=== PATIENT | male | born 1975 | race Native Hawaiian/Other Pacific Islander ===

== ENCOUNTER 2017-01-06 00:18 | Emergency (ER) | payer MEDICARE, MEDICAID ==
[2017-01-06 00:20] VITALS: BMI 29.2
[2017-01-06 00:41] VITALS: O2SAT 97
[2017-01-06] MEDS ORDERED: Sodium Chloride 0.9% 1,000 ML IV ONE (00:52)
--- NOTE | 2017-01-06 01:02 | C.PDOC ---
History Of Present Illness 41 year old male with a history of psoriasis, presents to the ER after being referred by his PMD with c/o left flank pain that began yesterday. Pt also notes having left lower quadrant pain and nausea. Denies difficulty with urination, fever, chills, vomiting, diarrhea, or any other complaints. Time Seen by Provider: 01/06/17 00:48 Chief Complaint (Nursing): Abdominal Pain History Per: Patient History/Exam Limitations: no limitations Onset/Duration Of Symptoms: Days Current Symptoms Are (Timing): Still Present Severity: Mild Location Of Pain/Discomfort: LLQ, Other (Left flank pain) Associated Symptoms: Nausea. denies: Fever, Chills, Vomiting, Diarrhea, Urinary Symptoms (difficulty urinating) Past Medical History Reviewed: Historical Data, Nursing Documentation, Vital Signs Vital Signs: Last Vital Signs Temp 97.2 F L 01/06/17 00:37 Pulse 96 H 01/06/17 00:37 Resp 18 01/06/17 00:37 BP 138/70 01/06/17 00:37 Pulse Ox 97 01/06/17 03:16 - Medical History PMH: Anxiety, Arthritis (psoriatic), Bipolar Disorder, Depression, Migraine, Personality Disorder, Post Traumatic Stress Disorder, Seizures Other PMH: Psoriasis - [facility] Procedures PSYCHIAT DRUG THERAP NEC (05/17/13) Family History: States: Unknown Family Hx - Social History Hx Tobacco Use: No Hx Alcohol Use: No Hx Substance Use: No - Immunization History Hx Tetanus Toxoid Vaccination: No Hx Influenza Vaccination: No Hx Pneumococcal Vaccination: No Review Of Systems Except As Marked, All Systems Reviewed And Found Negative. Constitutional: Negative for: Fever, Chills Gastrointestinal: Positive for: Nausea, Abdominal Pain (Left flank pain, left lower quadrant pain). Negative for: Vomiting, Diarrhea Genitourinary: Negative for: Dysuria Physical Exam - Physical Exam Appears: Non-toxic, No Acute Distress Skin: Warm, Dry Head: Atraumatic, Normacephalic Eye(s): bilateral: Normal Inspection Oral Mucosa: Moist Neck: Normal ROM, Supple Chest: Symmetrical Cardiovascular: Rhythm Regular, No Murmur Respiratory: Normal Breath Sounds, No Accessory Muscle Use, No Rales, No Rhonchi , No Wheezing Gastrointestinal/Abdominal: Soft, No Distention, No Guarding, No Rebound Back: CVA Tenderness (+Left CVA tenderness) Male Genital: No Testicular Swelling (No swelling on testicular exam) Neurological/Psych: Oriented x3, Normal Speech, Normal Cognition Gait: Steady ED Course And Treatment - Laboratory Results Result Diagrams: 01/06/17 01:26 01/06/17 01:26 O2 Sat by Pulse Oximetry: 97 (Room air) Pulse Ox Interpretation: Normal Medical Decision Making Medical Decision Making: Plan: -Ct ABD & Pelvis w/o contrast -Labs -Urinalysis -IV fluids -Toradol -reassess 315: pt reassesed. pain resolved. abd soft. mild leukoctyosis. no uti. 4 mm stone, stable for outpt managemnet. return precautions advised Disposition - Disposition Referrals: Yony Chua MD [Primary Care Provider] - Law Vega MD [Staff Provider] - Loida Vega MD [Staff Provider] - Disposition: HOME/ ROUTINE Disposition Time: 03:11 Condition: STABLE Additional Instructions: please follow up with your doctor. return to er with worsening symptoms or concerns. Prescriptions: Tamsulosin [Flomax] 0.4 mg PO DAILY #10 cap Ibuprofen [Motrin] 400 mg PO Q6 PRN #20 tab PRN Reason: Pain, Mild (1-3) Instructions: Kidney Stones (ED) - Clinical Impression Clinical Impression: Calculus of kidney - Scribe Statement The provider has reviewed the documentation as recorded by the Scribe Yung george All medical record entries made by the Scribe were at my direction and personally dictated by me. I have reviewed the chart and agree that the record accurately reflects my personal performance of the history, physical exam, medical decision making, and the department course for this patient. I have also personally directed, reviewed, and agree with the discharge instructions and disposition.
[2017-01-06] MEDS ORDERED: Sodium Chloride 0.9% 1,000 ML ONE (01:16)
[2017-01-06 01:30] LABS: BASO % 0.3 % (0.0-2.0); EOS % 0.2 % (0.0-4.0); HEMATOCRIT 49.4 % (35.0-51.0); LYMPH # 1.1 K/uL (1.0-4.3); LYMPH % 8.3 % (20.0-40.0); MEAN CELL VOLUME 87.8 fL (80.0-94.0); MEAN CORPUSCULAR HEMOGLOBIN 28.9 pg (27.0-31.0); MEAN CORPUSCULAR HGB CONC 32.9 g/dL (33.0-37.0); MEAN PLATELET VOLUME 9.5 fL (7.2-11.7); MONO # 0.4 K/uL (0.0-0.8); MONO % 3.3 % (0.0-10.0); PLATELET COUNT 189 K/uL (130-400); RED CELL DISTRIBUTION WIDTH 13.7 % (11.5-14.5); WHITE BLOOD COUNT 13.4 K/uL (4.8-10.8)
[2017-01-06 01:41] LABS: CHLORIDE 102 mmol/L (98-107); POTASSIUM 4.4 mmol/L (3.6-5.2); SODIUM 141 mmol/L (132-148)
[2017-01-06 01:43] LABS: BILIRUBIN,TOTAL 0.7 mg/dL (0.2-1.3); GFR AFRICAN-AMERICAN > 60
[2017-01-06 01:44] LABS: ALB/GLOB RATIO 1.2 (1.0-2.1); ALKALINE PHOSPHATASE 73 U/L (38-126); ALT/SGPT 51 U/L (21-72); AST/SGOT 35 U/L (17-59); BLOOD UREA NITROGEN 14 mg/dL (9-20); CALCIUM 8.3 mg/dl (8.6-10.4); CARBON DIOXIDE 22 mmol/L (22-30); GLUCOSE,RANDOM 108 mg/dL (75-110); TOTAL PROTEIN 8.3 g/dL (6.3-8.3)
[2017-01-06 02:14] LABS: RBC URINE 107 /hpf (0-3); URINE BILIRUBIN NEGATIVE (NEGATIVE); URINE BLOOD 3+ (NEGATIVE); URINE COLOR Yellow (YELLOW); URINE GLUCOSE (UA) NORMAL (Normal); URINE KETONE NEGATIVE (NEGATIVE); URINE LEUKOCYTE ESTERASE NEG Leu/uL (Negative); URINE PROTEIN NEGATIVE (NEGATIVE); URINE UROBILINOGEN NORMAL mg/dL (0.2-1.0); WBC URINE 2 /hpf (0-5)
[2017-01-06 02:33] LABS: EOSINOPHIL 1 % (0-4); NEUTROPHIL 88 % (50-75); TOTAL CELLS COUNTED 100
[2017-01-06 04:06] VITALS: BP 120/71; PULSE 77; RESP 20; TEMP 98.1
--- NOTE | 2017-01-06 09:29 | CT ---
PROCEDURE: CT Abdomen and Pelvis without intravenous contrast HISTORY: left flank pain COMPARISON: Comparison is made to the previous study dated 10/28/2011 TECHNIQUE: Axial and reformatted coronal and sagittal CT images of the abdomen and pelvis were obtained without IV or oral contrast administration.. Contrast Dose: 0 Radiation dose: Total exam DLP = 804.75 mGy-cm. FINDINGS: LOWER THORAX: Unremarkable. LIVER: Again seen is patchy low-attenuation liver suggestive of moderate steatosis. No evidence of acute pathology or mass lesion in the liver. GALLBLADDER AND BILE DUCTS: Unremarkable. PANCREAS: Unremarkable. No gross lesion or ductal dilatation. SPLEEN: Unremarkable. ADRENALS: Unremarkable. No mass. KIDNEYS AND URETERS: Mild left hydronephrosis and hydroureter up to 4 millimeter calculus at the mid left ureter. No evidence of right renal calculi or hydronephrosis. Mild left perinephric stranding seen. VASCULATURE: Unremarkable. No aortic aneurysm. BOWEL: Unremarkable. No obstruction. No gross mural thickening. APPENDIX: Unremarkable. Normal appendix. PERITONEUM: Unremarkable. No free fluid. No free air. LYMPH NODES: Unremarkable. No enlarged lymph nodes. BLADDER: Unremarkable. REPRODUCTIVE: Unremarkable. BONES: No acute fracture. OTHER FINDINGS: None. IMPRESSION: Mild left hydronephrosis and hydroureter up to 4 millimeter calculus at the mid left ureter. Mild left perinephric stranding. Otherwise no evidence of acute pathology in the abdomen and pelvis. Moderate hepatic steatosis. Preliminary report was submitted by [facility].
== END 2017-01-06 03:53 | disposition home or self-care (01) ==
LOC: C.ER 00:18 → SUPCPDRO 00:18 → C.ER 03:53
DX: N20.0 Calculus of kidney (principal)
CPT/HCPCS: 74176; 80053; 81001; 83690; 85025; 85610; 85730; 96361; 96374; 99284; J1885; J7040

== ENCOUNTER 2017-09-28 18:47 | Inpatient (IN) | payer MEDICARE, MEDICAID ==
[2017-09-28 18:47] VITALS: BMI 29.2
[2017-09-28 19:34] LABS: BASO % 0.4 % (0.0-2.0); EOS # 0.3 K/uL (0.0-0.7); EOS % 2.7 % (0.0-4.0); HEMATOCRIT 47.2 % (35.0-51.0); LYMPH # 3.4 K/uL (1.0-4.3); MEAN CELL VOLUME 87.8 fL (80.0-94.0); MEAN CORPUSCULAR HEMOGLOBIN 29.8 pg (27.0-31.0); MEAN CORPUSCULAR HGB CONC 33.9 g/dL (33.0-37.0); MEAN PLATELET VOLUME 9.2 fL (7.2-11.7); MONO # 0.7 K/uL (0.0-0.8); MONO % 7.3 % (0.0-10.0); NRBC % 0.1 % (0.0-2.0); RED CELL DISTRIBUTION WIDTH 13.7 % (11.5-14.5); WHITE BLOOD COUNT 9.8 K/uL (4.8-10.8)
[2017-09-28] MEDS ORDERED: Sodium Chloride 0.9% 1,000 ML IV ONE (19:43)
[2017-09-28] MEDS ORDERED: HYDROmorphone 1 mg/ml ISec IVP STA (19:43)
[2017-09-28 19:59] LABS: ALB/GLOB RATIO 1.3 (1.0-2.1); ALKALINE PHOSPHATASE 88 U/L (38-126); ALT/SGPT 58 U/L (21-72); AST/SGOT 32 U/L (17-59); BILIRUBIN,TOTAL 0.7 mg/dL (0.2-1.3); BLOOD UREA NITROGEN 10 mg/dL (9-20); CALCIUM 8.8 mg/dl (8.6-10.4); CARBON DIOXIDE 24 mmol/L (22-30); CHLORIDE 107 mmol/L (98-107); GFR AFRICAN-AMERICAN > 60; GLUCOSE,RANDOM 90 mg/dL (75-110); MAGNESIUM 1.9 mg/dL (1.6-2.3); POTASSIUM 3.5 mmol/L (3.6-5.2); SODIUM 142 mmol/L (132-148); TOTAL PROTEIN 7.6 g/dL (6.3-8.3)
[2017-09-28 20:04] LABS: URINE BILIRUBIN NEGATIVE (NEGATIVE); URINE BLOOD NEGATIVE (NEGATIVE); URINE COLOR Straw (YELLOW); URINE GLUCOSE (UA) NORMAL (Normal); URINE KETONE NEGATIVE (NEGATIVE); URINE LEUKOCYTE ESTERASE NEG Leu/uL (Negative); URINE PROTEIN NEGATIVE (NEGATIVE); URINE UROBILINOGEN NORMAL mg/dL (0.2-1.0); WBC URINE 1 /hpf (0-5)
--- NOTE | 2017-09-28 20:08 | C.PDOC ---
History Of Present Illness 41 year old male with a Hx of seizure disorder and psoriatic arthritis presents to the ER with a complaint of joint pain. Family states they witnessed patient have 4 seizures due to the amount of pain he was in; they lasted approximately 20 seconds each with a post ictal state after each of them and they were like his normal seizures as per family. Patient usually take topamax, neurontin, and klonopin for his seizures. Patient notes having subjective fever and stomach flu over the past few days that has resolved since. Family reports he was admitted for similar symptoms 1 year ago. Denies dysuria, hematuria, or abdominal pain. Chief Complaint (Nursing): Seizure History Per: Patient, Family History/Exam Limitations: no limitations Recent Seizure Activity Began: Hours Ago: Number Of Seizures: Multiple (4) Length Of Seizures (Duration): Seconds (20) Quality Of Seizure: Generalized Precipitating Factor(s): Other ("pain") Post-ictal Period: Duration Unknown Recent travel outside of the [place]: No Past Medical History Reviewed: Historical Data, Nursing Documentation, Vital Signs Vital Signs: Last Vital Signs Temp 98 F 09/28/17 23:20 Pulse 59 L 09/29/17 05:45 Resp 20 09/28/17 23:20 BP 104/67 09/29/17 05:45 Pulse Ox 96 09/28/17 23:20 - Medical History PMH: Anxiety, Arthritis (psoriatic), Bipolar Disorder, Depression, Migraine, Personality Disorder, Post Traumatic Stress Disorder, Seizures Surgical History: No Surg Hx - [facility] Procedures PSYCHIAT DRUG THERAP NEC (05/17/13) Family History: States: Unknown Family Hx - Social History Hx Tobacco Use: No Hx Alcohol Use: No Hx Substance Use: No - Immunization History Hx Tetanus Toxoid Vaccination: No Hx Influenza Vaccination: No Hx Pneumococcal Vaccination: No Review Of Systems Constitutional: Negative for: Fever, Chills Cardiovascular: Negative for: Chest Pain Gastrointestinal: Negative for: Abdominal Pain Musculoskeletal: Positive for: Other (Joint pain) Neurological: Positive for: Seizures Physical Exam - Physical Exam Appears: Non-toxic, Other (Uncomfortable) Skin: Warm, Dry, Other (Chronic psoriatic lesions throughout body) Head: Atraumatic, Normacephalic Eye(s): bilateral: Normal Inspection Oral Mucosa: Dry Neck: Normal, Supple Chest: Symmetrical, No Tenderness Cardiovascular: Rhythm Regular Respiratory: Normal Breath Sounds, No Rales, No Rhonchi, No Wheezing Gastrointestinal/Abdominal: Soft, No Tenderness Neurological/Psych: Oriented x3, Normal Speech ED Course And Treatment - Laboratory Results Result Diagrams: 09/28/17 19:30 09/28/17 19:30 O2 Sat by Pulse Oximetry: 97 (room air) Pulse Ox Interpretation: Normal Progress Note: Blood work, CXR, and urinalysis ordered. IV fluids and dilaudid administered. Discussed case with Dr. Chua who will admit patient to telemetry. Disposition - Disposition Disposition: HOSPITALIZED Disposition Time: 20:45 Condition: STABLE - Clinical Impression Clinical Impression: Seizure, Intractable pain - Scribe Statement The provider has reviewed the documentation as recorded by the Scribe Tre Mdcaniel All medical record entries made by the Marielaibe were at my direction and personally dictated by me. I have reviewed the chart and agree that the record accurately reflects my personal performance of the history, physical exam, medical decision making, and the department course for this patient. I have also personally directed, reviewed, and agree with the discharge instructions and disposition.
[2017-09-28] MEDS ORDERED: Sodium Chloride 0.9% 1,000 ML ONE (20:16)
[2017-09-28] MEDS ORDERED: HYDROmorphone 1 mg/ml ISec ONE (20:16)
[2017-09-28] MEDS ORDERED: DiphenhydrAMINE 50 mg/ml Inj IVP STA (21:05)
--- NOTE | 2017-09-28 22:03 | CP.PCM.HP ---
History of Present Illness - History of Present Illness History of Present Illness: CC: seizure HPI: 41 year old male with a Hx of seizure disorder and psoriatic arthritis presents to the ER with a complaint of joint pain. Family states they witnessed patient have 4 seizures due to the amount of pain he was in; they lasted approximately 20 seconds each with a post ictal state after each of them and they were like his normal seizures as per family. Patient usually take topamax, neurontin, and klonopin for his seizures. Patient notes having subjective fever and stomach flu over the past few days that has resolved since. Family reports he was admitted for similar symptoms 1 year ago. Denies dysuria, hematuria, or abdominal pain. Present on Admission - Present on Admission Any Indicators Present on Admission: Yes Past Patient History - Infectious Disease Hx of Infectious Diseases: None - Past Medical History & Family History Past Medical History?: Yes - Past Social History Smoking Status: Never Smoked - CARDIAC Hx Hypertension: No - PULMONARY Hx Respiratory Disorders: No - NEUROLOGICAL Hx Migraine: Yes Hx Seizures: Yes - HEENT Hx HEENT Problems: No - RENAL Hx Chronic Kidney Disease: No - ENDOCRINE/METABOLIC Hx Endocrine Disorders: No - HEMATOLOGICAL/ONCOLOGICAL Hx Human Immunodeficiency Virus (HIV): No - INTEGUMENTARY Hx Dermatological Problems: Yes Hx Psoriasis: Yes - MUSCULOSKELETAL/RHEUMATOLOGICAL Hx Arthritis: Yes (psoriatic) - GASTROINTESTINAL Hx Gastrointestinal Disorders: No - GENITOURINARY/GYNECOLOGICAL Hx Sexually Transmitted Disorders: No - PSYCHIATRIC Hx Anxiety: Yes Hx Bipolar Disorder: Yes Hx Depression: Yes Hx Post Traumatic Stress Disorder: Yes Hx Substance Use: No - SURGICAL HISTORY Hx Surgeries: No - ANESTHESIA Hx Anesthesia: No Hx Anesthesia Reactions: No Hx Malignant Hyperthermia: No Meds Allergies/Adverse Reactions: Allergies Allergy/AdvReac Type Severity Reaction Status Date / Time strawberry Allergy Severe ANAPHYLAXIS Verified 01/06/17 00:33 metoclopramide HCl Allergy SWELLING Verified 01/06/17 00:33 [From Reglan] phenytoin [From Dilantin] Allergy RASH Verified 09/29/17 01:32 lamotrigine [From Lamictal] AdvReac Severe SWELLING Verified 01/06/17 00:33 tomato AdvReac Severe ANAPHYLAXIS Verified 09/29/17 01:32 buprenorphine HCl AdvReac Mild RASH Verified 01/06/17 00:33 [From Suboxone] divalproex sodium AdvReac Mild RASH Verified 01/06/17 00:33 [From Depakote] naloxone AdvReac Mild RASH Verified 01/06/17 00:33 naloxone HCl [From Suboxone] AdvReac Mild RASH Verified 01/06/17 00:33 sumatriptan [From Imitrex] AdvReac Mild RASH Verified 01/06/17 00:33 sumatriptan succinate AdvReac Mild RASH Verified 01/06/17 00:33 [From Imitrex] Physical Exam - Constitutional Appears: No Acute Distress Additional comments: extensive rash all over body scaly - Eye Exam Eye Exam: EOMI, Normal appearance, PERRL Pupil Exam: NORMAL ACCOMODATION, PERRL - Respiratory Exam Respiratory Exam: Clear to Auscultation Bilateral, NORMAL BREATHING PATTERN - Cardiovascular Exam Cardiovascular Exam: REGULAR RHYTHM - GI/Abdominal Exam GI & Abdominal Exam: Normal Bowel Sounds, Soft. absent: Tenderness - Neurological Exam Neurological exam: Alert, CN II-XII Intact, Normal Gait, Oriented x3, Reflexes Normal - Psychiatric Exam Psychiatric exam: Depressed - Skin Skin Exam: Dry, Rash Results - Vital Signs Recent Vital Signs: Last Vital Signs Temp 98.2 F 09/28/17 19:31 Pulse 66 09/28/17 19:31 Resp 13 09/28/17 19:31 BP 104/69 09/28/17 19:31 Pulse Ox 97 09/28/17 21:43 - Labs Result Diagrams: 09/28/17 19:30 09/28/17 19:30 Labs: Laboratory Results - last 24 hr 09/28/17 09/28/17 09/28/17 19:30 19:30 19:56 WBC 9.8 RBC 5.37 Hgb 16.0 Hct 47.2 MCV 87.8 MCH 29.8 MCHC 33.9 RDW 13.7 Plt Count 258 MPV 9.2 Neut % (Auto) 54.6 Lymph % (Auto) 35.0 [place] % (Auto) 7.3 Eos % (Auto) 2.7 Baso % (Auto) 0.4 Neut # 5.3 Lymph # 3.4 [place] # 0.7 Eos # 0.3 Baso # 0.0 Sodium 142 Potassium 3.5 L Chloride 107 Carbon Dioxide 24 Anion Gap 15 BUN 10 Creatinine 1.2 Est GFR ( Amer) > 60 Est GFR (Non-Af Amer) > 60 Random Glucose 90 Calcium 8.8 Magnesium 1.9 Total Bilirubin 0.7 AST 32 ALT 58 Alkaline Phosphatase 88 Total Protein 7.6 Albumin 4.3 Globulin 3.2 Albumin/Globulin Ratio 1.3 Urine Color Straw Urine Clarity Clear Urine pH 6.0 Ur Specific [place] 1.004 Urine Protein Negative Urine Glucose (UA) Normal Urine Ketones Negative Urine Blood Negative Urine Nitrate Negative Urine Bilirubin Negative Urine Urobilinogen Normal Ur Leukocyte Esterase Neg Urine WBC (Auto) 1 Urine Opiates Screen Urine Methadone Screen Ur Barbiturates Screen Ur Phencyclidine Scrn Ur Amphetamines Screen U Benzodiazepines Scrn U Oth Cocaine Metabols U Cannabinoids Screen 09/28/17 19:56 WBC RBC Hgb Hct MCV MCH MCHC RDW Plt Count MPV Neut % (Auto) Lymph % (Auto) [place] % (Auto) Eos % (Auto) Baso % (Auto) Neut # Lymph # [place] # Eos # Baso # Sodium Potassium Chloride Carbon Dioxide Anion Gap BUN Creatinine Est GFR ( Amer) Est GFR (Non-Af Amer) Random Glucose Calcium Magnesium Total Bilirubin AST ALT Alkaline Phosphatase Total Protein Albumin Globulin Albumin/Globulin Ratio Urine Color Urine Clarity Urine pH Ur Specific [place] Urine Protein Urine Glucose (UA) Urine Ketones Urine Blood Urine Nitrate Urine Bilirubin Urine Urobilinogen Ur Leukocyte Esterase Urine WBC (Auto) Urine Opiates Screen Negative Urine Methadone Screen Negative Ur Barbiturates Screen Negative Ur Phencyclidine Scrn Negative Ur Amphetamines Screen Negative U Benzodiazepines Scrn Negative U Oth Cocaine Metabols Negative U Cannabinoids Screen Negative Assessment & Plan (1) Seizure Status: Acute (2) MINDI (generalized anxiety disorder) Status: Acute (3) Psoriasis universalis Status: Acute (4) Depression Status: Chronic Priority: Medium (5) Psoriasis Status: Chronic Priority: High
[2017-09-28 22:42] VITALS: RESP 20
[2017-09-29] MEDS ORDERED: DiphenhydrAMINE 50 mg/ml Inj IVP STA (00:55)
[2017-09-29] MEDS ORDERED: HYDROmorphone 0.5 mg/0.5 ml ISec IVP STA (01:00)
[2017-09-29] MEDS: HYDROmorphone 1 mg/ml ISec IVP PRN ×3 (05:45→18:11)
--- NOTE | 2017-09-29 07:09 | RAD ---
HISTORY: r/o infiltrate COMPARISON: 02/16/2016 FINDINGS: LUNGS: No focal infiltrate or effusion. PLEURA: No significant pleural effusion identified, no pneumothorax apparent. CARDIOVASCULAR: Normal. OSSEOUS STRUCTURES: No significant abnormalities. VISUALIZED UPPER ABDOMEN: Normal. OTHER FINDINGS: None. IMPRESSION: No active disease.
[2017-09-29] MEDS: Enoxaparin 40 mg Syringe SC SCH (09:19)
[2017-09-29] MEDS ORDERED: DiphenhydrAMINE 50 mg/ml Inj IVP ONE (12:00)
[2017-09-29] MEDS: DiphenhydrAMINE 50 mg/ml Inj IVP PRN (18:10)
--- NOTE | 2017-09-29 23:41 | CP.PCM.PN ---
Subjective - Date & Time of Evaluation Date of Evaluation: 09/29/17 Time of Evaluation: 20:20 - Subjective Subjective: Pt is seen and examined, pt is on seizure medication, Objective - Vital Signs/Intake and Output Vital Signs (last 24 hours): Temp Pulse Resp BP Pulse Ox 97.6 F 65 20 117/71 98 09/29/17 16:00 09/29/17 16:00 09/29/17 16:00 09/29/17 16:00 09/29/17 16:00 Intake and Output: 09/29/17 09/30/17 18:59 06:59 Intake Total 480 Balance 480 - Medications Medications: Current Medications Clonazepam (Klonopin) 2 mg PO BID [facility] Last Admin: 09/29/17 18:10 Dose: 2 mg Diphenhydramine HCl (Benadryl) 25 mg IVP Q6H PRN PRN Reason: Itching / Pruritus Last Admin: 09/29/17 18:10 Dose: 25 mg Enoxaparin Sodium (Lovenox) 40 mg SC DAILY [facility] Last Admin: 09/29/17 09:19 Dose: 40 mg Gabapentin (Neurontin) 300 mg PO HS [facility] Last Admin: 09/29/17 21:35 Dose: 300 mg Hydromorphone HCl (Dilaudid) 1 mg IVP Q6H PRN PRN Reason: Pain, severe (8-10) Last Admin: 09/29/17 18:11 Dose: 1 mg Ibuprofen (Motrin Tab) 400 mg PO Q6 PRN PRN Reason: Pain, Mild (1-3) Topiramate (Topamax) 100 mg PO BID [facility] Last Admin: 09/29/17 18:10 Dose: 100 mg - Labs Labs: 09/28/17 19:30 09/28/17 19:30 - Constitutional Appears: No Acute Distress - Head Exam Head Exam: ATRAUMATIC, NORMAL INSPECTION, NORMOCEPHALIC - Eye Exam Eye Exam: EOMI, Normal appearance, PERRL Pupil Exam: NORMAL ACCOMODATION, PERRL - Respiratory Exam Respiratory Exam: Clear to Ausculation Bilateral, NORMAL BREATHING PATTERN - Cardiovascular Exam Cardiovascular Exam: REGULAR RHYTHM, +S1, +S2. absent: Murmur - GI/Abdominal Exam GI & Abdominal Exam: Soft, Normal Bowel Sounds. 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
[2017-09-30] MEDS: DiphenhydrAMINE 50 mg/ml Inj IVP PRN ×4 (00:19→18:53)
[2017-09-30] MEDS: HYDROmorphone 1 mg/ml ISec IVP PRN ×4 (00:22→18:53)
[2017-09-30] MEDS: Enoxaparin 40 mg Syringe SC SCH (10:10)
[2017-09-30 16:39] VITALS: O2SAT 95
--- NOTE | 2017-09-30 23:15 | CP.PCM.PN ---
Subjective - Date & Time of Evaluation Date of Evaluation: 09/30/17 Time of Evaluation: 20:00 - Subjective Subjective: Pt seen and evalauted at bedside, Objective - Vital Signs/Intake and Output Vital Signs (last 24 hours): Temp Pulse Resp BP Pulse Ox 98.7 F 79 20 116/74 95 09/30/17 15:05 09/30/17 19:52 09/30/17 15:05 09/30/17 15:05 09/30/17 15:05 Intake and Output: 09/30/17 10/01/17 18:59 06:59 Intake Total 450 Balance 450 - Medications Medications: Current Medications Clonazepam (Klonopin) 2 mg PO BID [facility] Last Admin: 09/30/17 18:24 Dose: 2 mg Diphenhydramine HCl (Benadryl) 25 mg IVP Q6H PRN PRN Reason: Itching / Pruritus Last Admin: 09/30/17 18:53 Dose: 25 mg Enoxaparin Sodium (Lovenox) 40 mg SC DAILY [facility] Last Admin: 09/30/17 10:10 Dose: 40 mg Gabapentin (Neurontin) 300 mg PO HS [facility] Last Admin: 09/30/17 21:34 Dose: 300 mg Hydromorphone HCl (Dilaudid) 1 mg IVP Q6H PRN PRN Reason: Pain, severe (8-10) Last Admin: 09/30/17 18:53 Dose: 1 mg Ibuprofen (Motrin Tab) 400 mg PO Q6 PRN PRN Reason: Pain, Mild (1-3) Topiramate (Topamax) 100 mg PO BID [facility] Last Admin: 09/30/17 18:24 Dose: 100 mg - Labs Labs: 09/28/17 19:30 09/28/17 19:30 Assessment and Plan (1) Seizure Status: Acute (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
[2017-10-01] MEDS: HYDROmorphone 1 mg/ml ISec IVP PRN (01:01)
[2017-10-01] MEDS: DiphenhydrAMINE 50 mg/ml Inj IVP PRN ×3 (01:01→18:07)
[2017-10-01 07:50] LABS: HEMATOCRIT 47.2 % (35.0-51.0); MEAN CELL VOLUME 87.2 fL (80.0-94.0); MEAN CORPUSCULAR HEMOGLOBIN 29.3 pg (27.0-31.0); MEAN CORPUSCULAR HGB CONC 33.5 g/dL (33.0-37.0); MEAN PLATELET VOLUME 9.2 fL (7.2-11.7); RED CELL DISTRIBUTION WIDTH 13.6 % (11.5-14.5); WHITE BLOOD COUNT 8.6 K/uL (4.8-10.8)
[2017-10-01 08:16] LABS: BLOOD UREA NITROGEN 14 mg/dL (9-20); CALCIUM 8.6 mg/dl (8.6-10.4); CARBON DIOXIDE 26 mmol/L (22-30); CHLORIDE 106 mmol/L (98-107); GFR AFRICAN-AMERICAN > 60; GLUCOSE,RANDOM 102 mg/dL (75-110); POTASSIUM 3.7 mmol/L (3.6-5.2); SODIUM 138 mmol/L (132-148)
[2017-10-01] MEDS: Enoxaparin 40 mg Syringe SC SCH (10:12)
[2017-10-01 16:24] VITALS: BP 104/70; TEMP 98.9
[2017-10-01 21:12] VITALS: PULSE 95
--- NOTE | 2017-10-01 22:09 | CP.PCM.DIS ---
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 Priority: Medium Hospital Course - Lab Results Lab Results: Micro Results 09/28/17 22:15 Urine Urine Culture - Final No Growth (<1,000 CFU/ML) Most Recent Lab Values WBC 8.6 K/uL (4.8-10.8) 10/01/17 07:39 RBC 5.41 Mil/uL (4.40-5.90) 10/01/17 07:39 Hgb 15.8 g/dL (12.0-18.0) 10/01/17 07:39 Hct 47.2 % (35.0-51.0) 10/01/17 07:39 MCV 87.2 fL (80.0-94.0) 10/01/17 07:39 MCH 29.3 pg (27.0-31.0) 10/01/17 07:39 MCHC 33.5 g/dL (33.0-37.0) 10/01/17 07:39 RDW 13.6 % (11.5-14.5) 10/01/17 07:39 Plt Count 239 K/uL (130-400) 10/01/17 07:39 MPV 9.2 fL (7.2-11.7) 10/01/17 07:39 Neut % (Auto) 54.6 % (50.0-75.0) 09/28/17 19:30 Lymph % (Auto) 35.0 % (20.0-40.0) 09/28/17 19:30 [place] % (Auto) 7.3 % (0.0-10.0) 09/28/17 19:30 Eos % (Auto) 2.7 % (0.0-4.0) 09/28/17 19:30 Baso % (Auto) 0.4 % (0.0-2.0) 09/28/17 19:30 Neut # 5.3 K/uL (1.8-7.0) 09/28/17 19:30 Lymph # 3.4 K/uL (1.0-4.3) 09/28/17 19:30 [place] # 0.7 K/uL (0.0-0.8) 09/28/17 19:30 Eos # 0.3 K/uL (0.0-0.7) 09/28/17 19:30 Baso # 0.0 K/uL (0.0-0.2) 09/28/17 19:30 ESR 13 mm/hr (0-15) 10/01/17 07:39 Sodium 138 mmol/L (132-148) 10/01/17 07:39 Potassium 3.7 mmol/L (3.6-5.2) 10/01/17 07:39 Chloride 106 mmol/L (98-107) 10/01/17 07:39 Carbon Dioxide 26 mmol/L (22-30) 10/01/17 07:39 Anion Gap 10 (10-20) 10/01/17 07:39 BUN 14 mg/dL (9-20) 10/01/17 07:39 Creatinine 1.2 mg/dL (0.8-1.5) 10/01/17 07:39 Est GFR ( Amer) > 60 10/01/17 07:39 Est GFR (Non-Af Amer) > 60 10/01/17 07:39 Random Glucose 102 mg/dL (75-110) 10/01/17 07:39 Calcium 8.6 mg/dl (8.6-10.4) 10/01/17 07:39 Magnesium 1.9 mg/dL (1.6-2.3) 09/28/17 19:30 Total Bilirubin 0.7 mg/dL (0.2-1.3) 09/28/17 19:30 AST 32 U/L (17-59) 09/28/17 19:30 ALT 58 U/L (21-72) 09/28/17 19:30 Alkaline Phosphatase 88 U/L (38-126) 09/28/17 19:30 Total Protein 7.6 g/dL (6.3-8.3) 09/28/17 19:30 Albumin 4.3 g/dL (3.5-5.0) 09/28/17 19:30 Globulin 3.2 gm/dL (2.2-3.9) 09/28/17 19:30 Albumin/Globulin Ratio 1.3 (1.0-2.1) 09/28/17 19:30 Urine Color Straw (YELLOW) 09/28/17 19:56 Urine Clarity Clear (Clear) 09/28/17 19:56 Urine pH 6.0 (5.0-8.0) 09/28/17 19:56 Ur Specific [place] 1.004 (1.003-1.030) 09/28/17 19:56 Urine Protein Negative mg/dL (NEGATIVE) 09/28/17 19:56 Urine Glucose (UA) Normal mg/dL (Normal) 09/28/17 19:56 Urine Ketones Negative mg/dL (NEGATIVE) 09/28/17 19:56 Urine Blood Negative (NEGATIVE) 09/28/17 19:56 Urine Nitrate Negative (NEGATIVE) 09/28/17 19:56 Urine Bilirubin Negative (NEGATIVE) 09/28/17 19:56 Urine Urobilinogen Normal mg/dL (0.2-1.0) 09/28/17 19:56 Ur Leukocyte Esterase Neg [place]/uL (Negative) 09/28/17 19:56 Urine WBC (Auto) 1 /hpf (0-5) 09/28/17 19:56 Urine Opiates Screen Negative (NEGATIVE) 09/28/17 19:56 Urine Methadone Screen Negative (NEGATIVE) 09/28/17 19:56 Ur Barbiturates Screen Negative (NEGATIVE) 09/28/17 19:56 Ur Phencyclidine Scrn Negative (NEGATIVE) 09/28/17 19:56 Ur Amphetamines Screen Negative (NEGATIVE) 09/28/17 19:56 U Benzodiazepines Scrn Negative (NEGATIVE) 09/28/17 19:56 U Oth Cocaine Metabols Negative (NEGATIVE) 09/28/17 19:56 U Cannabinoids Screen Negative (NEGATIVE) 09/28/17 19:56 - Hospital Course Hospital Course: Pt is for discharge, feeling better, blood sugars are under control Discharge Exam - Head Exam Head Exam: ATRAUMATIC, NORMAL INSPECTION, NORMOCEPHALIC - Eye Exam Eye Exam: EOMI, Normal appearance, PERRL Pupil Exam: NORMAL ACCOMODATION, PERRL - ENT Exam ENT Exam: Mucous Membranes Moist - Respiratory Exam Respiratory Exam: Clear to PA & Lateral, NORMAL BREATHING PATTERN - Cardiovascular Exam Cardiovascular Exam: REGULAR RHYTHM, +S1, +S2 - GI/Abdominal Exam GI & Abdominal Exam: Normal Bowel Sounds - Skin Skin Exam: Dry, Normal Color Discharge Plan - Follow Up Plan Condition: STABLE Disposition: HOME/ ROUTINE Instructions: Heart Healthy Diet (DC), Recurrent Seizures in Adults (DC) Additional Instructions: FOLLOW UP WITH DR. CHUA IN THE OFFICE WITHIN 1 WEEK OF DISCHARGE---CALL FOR APPT TIME. CONTINUE ALL MEDICATIONS USUAL. NO NEW PRESCRIPTIONS. FOR FURTHER QUESTIONS OR CONCERNS, CONTACT DR. CHUA'S OFFICE. Referrals: Yony Chua MD [Staff Provider] -
--- NOTE | 2017-10-04 10:45 | EEG ---
DATE: 09/30/2017 This is a 16-channel electroencephalogram of awake adult. During the study, photic stimulation was performed. Hyperventilation was not performed. The resting electroencephalogram consists of low-amplitude fast-beta activities noted superimposed with some sleep spindle activities and K complexes are noted, which is consistent with the N2 sleep. This fast beta activity is continuously noted from the beginning. The photic stimulation did not evoke driving response noted at 2 to 20 Hz. IMPRESSION: This is abnormal electroencephalogram because of persistent fast beta activities consistent with the N2 sleep. No focal slowing noted. This fast beta activity is probably secondary to drug effect. If clinical suspicion is high, the study should be repeated. Tom Aaron MD
== END 2017-10-01 18:56 | disposition home or self-care (01) | DRG 101 ==
LOC: C.ER 18:47 → C.9E 21:06 → C.6T 22:01 → OBSVTOIN 09-30 16:16
PROVIDERS: ADMIT Internal Medicine; ATTEND Internal Medicine
DX: G40.209 Localization-related (focal) (partial) symptomatic epilepsy and epileptic syndromes with complex partial seizures, not intractable, without status epilepticus (principal); L40.50 Arthropathic psoriasis, unspecified; F31.9 Bipolar disorder, unspecified; F41.1 Generalized anxiety disorder; F43.10 Post-traumatic stress disorder, unspecified; F60.9 Personality disorder, unspecified

== ENCOUNTER 2018-11-03 10:51 | Observation (INO) | payer MEDICARE, MEDICAID ==
[2018-11-03 10:51] VITALS: BMI 29.2
[~2018-11-03 10:51] MED LIST: Gadodiamide 287 mg/ml 20 ml IV ONE
--- NOTE | 2018-11-03 11:29 | C.PDOC ---
History Of Present Illness 43 y/o male with PMH of seizure disorder, psoriatic arthritis, schizophrenia, depression, anxiety, opiate abuse who presents to the ED c/o lower back pain and bilateral lower extremity pain x 2 days. Unable to ambulate secondary to pain. Pt has not had a flare of his psoriatic arthritis pain in 2 years. On biologic [Cosentyx] injection every 15 days, but is 2 days late on this dose secondary to insurance issues. 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 C/o associated generalized pruritis secondary to psoriasis. Has been taking motrin at home without relief. Pt has a history of opiate abuse and is unwilling to be given a script of narcotics for home, states NSAIDs and tylenol have not been helping. States he has been admitted for pain control in the past, last September of 2017. Also reports that his last seizure was last week. Pt was supposed to have an appointment with his neurologist today but skipped it to come here to the ED. Denies fever, chills, paresthesias, numbness, weakness, abdominal pain, N/V, chest pain, SOB, saddle anesthesia, bowel/bladder incontinence, or any other associated complaints. Rheumatology: Dr. Jose Lester; last seen September Neurology: Dr. Jud Canas; last seen September PMD: Dr. Zachery Chua Time Seen by Provider: 11/03/18 11:17 Chief Complaint (Nursing): Lower Extremity Problem/Injury Past Medical History Vital Signs: Last Vital Signs Temp 97.7 F 11/03/18 10:59 Pulse 86 11/03/18 10:59 Resp 19 11/03/18 10:59 BP 135/87 11/03/18 10:59 Pulse Ox 98 11/03/18 10:59 - Medical History PMH: Anxiety, Arthritis (psoriatic), Bipolar Disorder, Depression, Migraine, Paranoia, Personality Disorder, Post Traumatic Stress Disorder, Schizophrenia, Seizures Denies: Diabetes, Hepatitis, HIV, HTN, Chronic Kidney Disease, Sexually Transmitted Disease - [facility] PSYCHIAT DRUG THERAP NEC (05/17/13) Family History: States: Unknown Family Hx - Social History Hx Tobacco Use: No Hx Alcohol Use: No Hx Substance Use: Yes (13 years sober) - Immunization History Hx Tetanus Toxoid Vaccination: No Hx Influenza Vaccination: No Hx Pneumococcal Vaccination: No Review Of Systems Except As Marked, All Systems Reviewed And Found Negative. Constitutional: Negative for: Fever, Chills Eyes: Negative for: Vision Change ENT: Negative for: Nose Congestion Cardiovascular: Negative for: Chest Pain, Palpitations, Light Headedness Respiratory: Negative for: Cough, Shortness of Breath Gastrointestinal: Negative for: Nausea, Vomiting, Abdominal Pain, Diarrhea Musculoskeletal: Positive for: Shoulder Pain, Arm Pain, Back Pain, Hand Pain, Leg Pain, Foot Pain. Negative for: Neck Pain Skin: Positive for: Rash. Negative for: Bruising Neurological: Negative for: Weakness, Numbness, Headache, Dizziness Physical Exam - Physical Exam Appears: Non-toxic, Other (Uncomfortable) Skin: Warm, Dry, Rash (psoriasis to extensor surfaces of upper extremities) Head: Atraumatic, Normacephalic Eye(s): bilateral: Normal Inspection, PERRL, EOMI Nose: Normal Oral Mucosa: Moist Throat: Normal Neck: Normal, Normal ROM, No Midline Cervical Tenderness, No Paracervical Tenderness, Supple Cardiovascular: Rhythm Regular Respiratory: Normal Breath Sounds Gastrointestinal/Abdominal: Normal Exam, Bowel Sounds (normoactive), Soft, No Tenderness Back: Normal Inspection, No CVA Tenderness, No Vertebral Tenderness, Decreased ROM, No Paraspinal Tenderness Extremity: No Normal ROM (decreased ROM of all extremities secondary to pain), Tenderness (bilateral knee and ankle joints), Capillary Refill (<2s), Deformity (chronic arthritic changes to bilateral hands, digits), No Swelling Extremity: Bilateral: Atraumatic, Limited ROM To Joint, No Pedal Edema Pulses: Left Radial: Normal, Right Radial: Normal, Left Dorsalis Pedis: Normal, Right Dorsalis Pedis: Normal Neurological/Psych: Oriented x3, Normal Speech, Normal Motor, Normal Sensation Gait: Unable To Assess (States unable to ambulate secondary to pain) ED Course And Treatment - Laboratory Results Result Diagrams: 11/03/18 12:13 11/03/18 13:02 O2 Sat by Pulse Oximetry: 98 Medical Decision Making Medical Decision Making: Initial Plan: * Call PMD 12:[address] Zachery Chua, who recommends admitting patient for pain con trol. Recommends basic labwork, MRI of lumbar spine with contrast, naproxen, and gabapentin. Patient made aware of decision to admit to hospital. Pt agrees with disposition. Resting in stretcher, continues to c/o pain. Vitals stable for admission at this time. Disposition - Disposition Disposition: HOSPITALIZED Disposition Time: 12:00 Condition: STABLE - Clinical Impression Clinical Impression: Psoriatic arthritis, Psoriasis, Chronic pain
[2018-11-03] MEDS ORDERED: Naproxen 275 mg Tab PO ONE (12:16)
[2018-11-03 12:22] LABS: BASO # 0.1 K/uL (0.0-0.2); BASO % 0.7 % (0.0-2.0); EOS # 0.2 K/uL (0.0-0.7); EOS % 2.5 % (0.0-4.0); HEMOGLOBIN 16.2 g/dL (12.0-18.0); LYMPH # 3.1 K/uL (1.0-4.3); LYMPH % 41.4 % (20.0-40.0); MEAN CELL VOLUME 90.9 fL (80.0-94.0); MEAN CORPUSCULAR HEMOGLOBIN 31.1 pg (27.0-31.0); MEAN CORPUSCULAR HGB CONC 34.2 g/dL (33.0-37.0); MEAN PLATELET VOLUME 9.6 fL (7.2-11.7); MONO # 0.5 K/uL (0.0-0.8); MONO % 6.3 % (0.0-10.0); NEUT # 3.7 K/uL (1.8-7.0); NEUT % 49.1 % (50.0-75.0); NRBC % 0.1 % (0.0-2.0); RBC 5.23 Mil/uL (4.40-5.90); RED CELL DISTRIBUTION WIDTH 13.9 % (11.5-14.5); WHITE BLOOD COUNT 7.5 K/uL (4.8-10.8)
[2018-11-03] MEDS: Naproxen 275 mg Tab PO SCH ×2 (12:24→17:48)
[2018-11-03 12:31] LABS: INR 1.1; PROTHROMBIN TIME 11.7 SECONDS (9.7-12.2)
[2018-11-03] MEDS ORDERED: DiphenhydrAMINE 50 mg/ml Inj IVP STA (12:34)
[2018-11-03] MEDS ORDERED: DiphenhydrAMINE 50 mg/ml Inj ONE (12:39)
[2018-11-03 13:21] LABS: ALB/GLOB RATIO 1.3 (1.0-2.1); ALBUMIN 4.3 g/dL (3.5-5.0); ALT/SGPT 46 U/L (21-72); AST/SGOT 28 U/L (17-59); BLOOD UREA NITROGEN 14 mg/dL (9-20); GFR NON-AFRICAN AMERICAN > 60
[2018-11-03 15:52] VITALS: RESP 20
--- NOTE | 2018-11-03 17:40 | MRI ---
Date of service: 11/03/2018 PROCEDURE: MR LUMBAR SPINE WITH AND WITHOUT CONTRAST HISTORY: Lower back and bilateral lower extremity pain COMPARISON: Comparison made with prior CT scan of the abdomen and pelvis dated 01/06/2017 which imaged the lumbar in 3 planes. TECHNIQUE: Multiecho multiplanar sequences were performed through the lumbar spine with and without the use of intravenous contrast. FINDINGS: No acute compression fractures nor retropulsed fragments. Vertebral bodies exhibit normal stature. Vertebral bodies and facets normally aligned.. Marrow signal unremarkable. No evidence of abnormal enhancement within disc spaces or endplates to suggest discitis osteomyelitis. There are no focal areas of abnormal enhancement within or along the surfaces of the visualized lower thoracic spinal cord/conus or nerve roots of the cauda equina. No paraspinal soft tissue abnormalities are identified. T12-L1: No disc herniation, spinal canal stenosis or neural foraminal narrowing. L1-2: No disc herniation, spinal canal stenosis or neural foraminal narrowing. L2-3: No disc herniation, spinal canal stenosis or neural foraminal narrowing. L3-4: No disc herniation, spinal canal stenosis or neural foraminal narrowing. L4-5: There is mild disc desiccation changes seen at the L4-L5 level with minimal broad-based bulge of the posterior annulus. There is a mild asymmetric broad-based bulge of the posterior annulus slightly larger on the left side than right with minimal extension into the proximal inferior margin of the left exit foramen. The overall central bony canal and exit foramina adequate.. Facets are slightly overgrown at this level. L5-S1: No disc herniation, spinal canal stenosis or neural foraminal narrowing. Mild facet arthropathy OTHER FINDINGS: None. IMPRESSION: Mild disc desiccation and mild asymmetric disc bulging changes slightly larger on left than right with extension into the proximal inferior margins of left exit foramen. No evidence the no evidence of canal nor foraminal compromise.
[2018-11-03] MEDS ORDERED: Naproxen 275 mg Tab PO SCH (18:00)
[2018-11-03] MEDS ORDERED: DiphenhydrAMINE 50 mg/ml Inj IVP PRN (19:26)
[2018-11-04 01:34] LABS: SQUAMOUS EPITHIAL < 1 /hpf (0-5); URINE BILIRUBIN NEGATIVE (NEGATIVE); URINE BLOOD NEGATIVE (NEGATIVE); URINE CLARITY Hazy (Clear); URINE COLOR Amber (YELLOW); URINE GLUCOSE (UA) NORMAL (Normal); URINE LEUKOCYTE ESTERASE NEG Leu/uL (Negative); URINE PROTEIN NEGATIVE (NEGATIVE); URINE UROBILINOGEN NORMAL mg/dL (0.2-1.0)
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
--- NOTE | 2018-11-04 07:03 | CP.PCM.CON ---
History of Present Illness - History of Present Illness History of Present Illness: CONSULT DICTATED GENERAL PAIN SYNDROME NO ACUTE NEUROLOGICAL PROBLEM NOW NO FURTHER INTERVENTION IS NEEDED PAIN MANAGEMENT Past Patient History - Infectious Disease Hx of Infectious Diseases: None - Past Medical History & Family History Past Medical History?: Yes - Past Social History Smoking Status: Never Smoked - CARDIAC Hx Hypertension: No - PULMONARY Hx Respiratory Disorders: No - NEUROLOGICAL Hx Migraine: Yes Hx Seizures: Yes - HEENT Hx HEENT Problems: No - RENAL Hx Chronic Kidney Disease: No - ENDOCRINE/METABOLIC Hx Endocrine Disorders: No - HEMATOLOGICAL/ONCOLOGICAL Hx Human Immunodeficiency Virus (HIV): No - INTEGUMENTARY Hx Dermatological Problems: Yes Hx Psoriasis: Yes - MUSCULOSKELETAL/RHEUMATOLOGICAL Hx Arthritis: Yes (psoriatic) - GASTROINTESTINAL Hx Gastrointestinal Disorders: No - GENITOURINARY/GYNECOLOGICAL Hx Sexually Transmitted Disorders: No - PSYCHIATRIC Hx Anxiety: Yes Hx Bipolar Disorder: Yes Hx Depression: Yes Hx Paranoia: Yes Hx Post Traumatic Stress Disorder: Yes Hx Schizophrenia: Yes Hx Substance Use: Yes (13 years sober) - SURGICAL HISTORY Hx Surgeries: No - ANESTHESIA Hx Anesthesia: No Hx Anesthesia Reactions: No Hx Malignant Hyperthermia: No Meds Allergies/Adverse Reactions: Allergies Allergy/AdvReac Type Severity Reaction Status Date / Time strawberry Allergy Severe ANAPHYLAXIS Verified 11/03/18 11:03 metoclopramide HCl Allergy SWELLING Verified 11/03/18 11:03 [From Reglan] phenytoin [From Dilantin] Allergy RASH Verified 11/03/18 11:03 lamotrigine [From Lamictal] AdvReac Severe SWELLING Verified 11/03/18 11:03 tomato AdvReac Severe ANAPHYLAXIS Verified 11/03/18 11:03 buprenorphine HCl AdvReac Mild RASH Verified 11/03/18 11:03 [From Suboxone] divalproex sodium AdvReac Mild RASH Verified 11/03/18 11:03 [From Depakote] naloxone AdvReac Mild RASH Verified 11/03/18 11:03 naloxone HCl [From Suboxone] AdvReac Mild RASH Verified 11/03/18 11:03 sumatriptan [From Imitrex] AdvReac Mild RASH Verified 11/03/18 11:03 sumatriptan succinate AdvReac Mild RASH Verified 11/03/18 11:03 [From Imitrex] - Medications Medications: Current Medications Clonazepam (Klonopin) 2 mg PO Q12H ROSE MARIE Last Admin: 11/04/18 05:28 Dose: 2 mg Diphenhydramine HCl (Benadryl) 25 mg IVP Q6H PRN PRN Reason: pruritus Hydromorphone HCl (Dilaudid) 2 mg IVP Q6H PRN PRN Reason: severe apin Last Admin: 11/04/18 01:58 Dose: 2 mg Influenza Virus Vaccine (Flucelvax Quad [id number] Syr) 60 mcg IM .ONCE ONE Stop: 11/05/18 10:01 Pneumococcal Polyvalent Vaccine (Pneumovax 23 Vaccine) 0.5 ml IM .ONCE ONE Stop: 11/05/18 10:01 Topiramate (Topamax) 200 mg PO BID COUNTS INCLUDE 234 BEDS AT THE [facility] Last Admin: 11/03/18 22:20 Dose: 200 mg Results - Vital Signs Recent Vital Signs: Last Vital Signs Temp 98 F 11/04/18 00:00 Pulse 75 11/04/18 00:00 Resp 20 11/04/18 00:00 BP 134/80 11/04/18 00:00 Pulse Ox 98 11/04/18 02:44 - Labs Result Diagrams: 11/03/18 12:13 11/03/18 13:02 Labs: Laboratory Results - last 24 hr 11/03/18 11/03/18 11/03/18 12:13 12:13 13:02 WBC 7.5 RBC 5.23 Hgb 16.2 Hct 47.5 MCV 90.9 D MCH 31.1 H MCHC 34.2 RDW 13.9 Plt Count 191 MPV 9.6 Neut % (Auto) 49.1 L Lymph % (Auto) 41.4 H Toole % (Auto) 6.3 Eos % (Auto) 2.5 Baso % (Auto) 0.7 Neut # (Auto) 3.7 Lymph # (Auto) 3.1 Toole # (Auto) 0.5 Eos # (Auto) 0.2 Baso # (Auto) 0.1 PT 11.7 INR 1.1 APTT 36 H Sodium 139 Potassium 3.6 Chloride 107 Carbon Dioxide 24 Anion Gap 12 BUN 14 Creatinine 1.1 Est GFR ( Amer) > 60 Est GFR (Non-Af Amer) > 60 Random Glucose 108 Calcium 9.0 Total Bilirubin 0.8 AST 28 ALT 46 Alkaline Phosphatase 63 Total Protein 7.6 Albumin 4.3 Globulin 3.3 Albumin/Globulin Ratio 1.3 Urine Color Urine Clarity Urine pH Ur Specific [place] Urine Protein Urine Glucose (UA) Urine Ketones Urine Blood Urine Nitrate Urine Bilirubin Urine Urobilinogen Ur Leukocyte Esterase Urine WBC (Auto) Ur Squamous Epith Cells 11/04/18 01:18 WBC RBC Hgb Hct MCV MCH MCHC RDW Plt Count MPV Neut % (Auto) Lymph % (Auto) Toole % (Auto) Eos % (Auto) Baso % (Auto) Neut # (Auto) Lymph # (Auto) Toole # (Auto) Eos # (Auto) Baso # (Auto) PT INR APTT Sodium Potassium Chloride Carbon Dioxide Anion Gap BUN Creatinine Est GFR ( Amer) Est GFR (Non-Af Amer) Random Glucose Calcium Total Bilirubin AST ALT Alkaline Phosphatase Total Protein Albumin Globulin Albumin/Globulin Ratio Urine Color Mary Urine Clarity Hazy Urine pH 6.0 Ur Specific [place] 1.018 Urine Protein Negative Urine Glucose (UA) Normal Urine Ketones Negative Urine Blood Negative Urine Nitrate Negative Urine Bilirubin Negative Urine Urobilinogen Normal Ur Leukocyte Esterase Neg Urine WBC (Auto) 1 Ur Squamous Epith Cells < 1
--- NOTE | 2018-11-04 08:17 | CON ---
DATE: 11/04/2018 TIME OF EVALUATION: 7:05 a.m. ATTENDING PHYSICIAN : Yony Chua MD LOCATION: Room #356, bed B. REASON FOR CONSULTATION: Lower back pain. CHIEF COMPLAINT: The patient was brought in to [facility] with history of worsening pain. From neurological point of view, I was called in to evaluate his neurological status related to his pain. HISTORY OF PRESENT ILLNESS: Mr. Dai Townsend is a 43-year-old right-handed Turkish-speaking male presenting with generalized pain which has been worsening and he is not getting his medication Cosentyx for his collagen vascular disease manifesting pain disorder. Since his pain got worse, he was advised to come to the hospital for further evaluation for his lower back pain. At present, he denies any lower back pain. No radicular pain. However, he admits to generalized pain all over the body and his body is getting better with Dilaudid. PAST MEDICAL HISTORY: Psoriatic arthritis, schizophrenia, depression, seizure disorder and migraine. PERSONAL HISTORY: Denies smoking or alcohol use, history of substance abuse. He is free for 13 years. REVIEW OF SYSTEM: Twelve-point system been reviewed, from neuro lower back pain. MEDICATION: Benadryl, Dilaudid, Klonopin, Topamax. PHYSICAL EXAMINATION: VITAL SIGNS: Blood pressure 134/80, mean artery pressure of 98, respiratory 18, temperature afebrile. NECK: Supple. No carotid bruit. HEART: Sounds regular. CHEST: Fair air entry. EXTREMITIES: No edema in legs. NEUROLOGIC EXAMINATION: Mental Status Examination: He is awake, alert and oriented to person, place and time. Speech is clear. Naming, repetition, fluency, comprehension all within normal. Cranial nerve examination, visual field intact. Pupils reactive. Extraocular movement normal. No nystagmus. No facial sensory deficit. No facial asymmetry. Hearing is normal. Tongue is midline. Good gag. Motor examination, outstretched hand with eyes closed, no drift noted. No asterixis. No fasciculation noted at rest. Significant distal muscle atrophy noted in both lower extremities. Deep tendon reflexes, biceps, brachialis, triceps are absent. Both knees are absent. Both ankles are absent. Plantars are downgoing. Sensory examination, significant distal sensory and motor neuropathy sparing posterior column. Coordination: Finger-nose test is intact. Examination of the spine, no significant tenderness noted as well. CONCLUSION: Mr. Dai Townsend is presenting with generalized pain syndrome related to his collagen vascular disease. The current examination shows mild distal sensory and motor neuropathy related to his collagen vascular disease as well. WORKUP: MRI of the lumbosacral spine been reviewed. L4-L5 arthritic changes with mild stenosis and no neuroforaminal stenosis. BLOOD WORKUP: WBC 7.4, hemoglobin 16.2, hematocrit 47.5, platelet 191. PT 11.7, INR 1.1, PTT 36. Sodium 139, potassium 3.6, chloride 107, bicarb 24, BUN 14, creatinine 1.1, GFR more than 60. Urinalysis normal. RECOMMENDATIONS: 1. Pain management as he has been getting it. 2. Continue the migraine prophylactic medication as he has been getting as well. 3. Continue Cosentyx for his psoriatic arthritis. 4. From neurological point of view, no further investigation is needed. Following discharge, he can be followed by his own neurologist. Tom Aaron MD
--- NOTE | 2018-11-04 13:19 | PN ---
DATE: 11/04/2018 SUBJECTIVE: The patient is seen in his room. I also spoke with his dad, who was visiting the patient. The patient is complaining of severe pruritus in his back. There is also pruritus from his psoriatic lesion. He said that the Benadryl IV helped him but it is on national shortage. Now the patient is taking p.o., it does not help him. I will switch him from the Benadryl 25 mg p.o. to Atarax 25 mg IM every 6 hours p.r.n. as well as with his Dilaudid 2 mg IV every 6 hours p.r.n. The pain has improved with the use of Dilaudid p.r.n., but the Dilaudid has been increased his pruritus. Other than that, he is manageable, still anxious and concerned about exacerbation of his psoriatic arthritis due to lack of his Cosentyx. PHYSICAL EXAMINATION: VITAL SIGNS: Temperature 97.5, heart rate 73, blood pressure 124/77, respirations 20, and oxygen saturation is 95%. REVIEW OF SYSTEMS: GENERAL: Seen in his room, anxious, somatic. The patient was scratching, complaining severe back pruritus, also in his hands, extremities from his psoriasis. SKIN: has severe pruritus tiny on his back. HEENT: No headache, no dizziness. NECK: Supple. RESPIRATORY: Dyspnea. CARDIOVASCULAR: No chest pain. GASTROINTESTINAL: patient is eating fairly well. EXTREMITIES: The patient is complaining of arthritic pain. MUSCULOSKELETAL: Feels weak. NEUROLOGIC: Alert and oriented x3. GENITOURINARY: No urinary problems. MENTAL STATUS EXAMINATION: A well-developed male who looks his age, oriented x3. Mood is anxious, somatic, clinically depressed. Affect is reactive. Speech is spontaneous. Thought process coherent. Thought content, the patient reports some relief of pain, but distressed over his pruritus. I want to change his medication as stated from Benadryl to Atarax. No overt psychosis. No suicidal or homicidal ideation. Attention and memory seems to be fair. Insight and judgment are fair. Impulse control is fair. IMPRESSION: History of bipolar as well as post-traumatic stress disorder and history of multiple personality seizure, and history of psoriatic arthritis with acute exacerbation. PLAN AND RECOMMENDATIONS: The patient is seen, meds reviewed. Continue Dilaudid 2 mg IV every 6 hours p.r.n. as well as we will discontinue the Benadryl and put him on Atarax 25 mg IM every 6 hours p.r.n. for pruritus. Continue Klonopin 2 mg every 12 hours for now and topiramate 200 mg p.o. b.i.d. He is not sedated with the addition of his pain meds to these meds; however, we will keep him off the Neurontin and Thorazine. Continued treatment and plan as outlined. Holden Mathews MD [facility]
[2018-11-04] MEDS: hydrOXYzine HCl 25 mg/ml Inj IM PRN (13:52)
[2018-11-04] MEDS ORDERED: Patient's Own Injectable SC ONE (15:00)
--- NOTE | 2018-11-04 19:01 | CP.PCM.HP ---
Present on Admission - Present on Admission Any Indicators Present on Admission: No Past Patient History - Infectious Disease Hx of Infectious Diseases: None - Past Medical History & Family History Past Medical History?: Yes - Past Social History Smoking Status: Never Smoked - CARDIAC Hx Hypertension: No - PULMONARY Hx Respiratory Disorders: No - NEUROLOGICAL Hx Migraine: Yes Hx Seizures: Yes - HEENT Hx HEENT Problems: No - RENAL Hx Chronic Kidney Disease: No - ENDOCRINE/METABOLIC Hx Endocrine Disorders: No - HEMATOLOGICAL/ONCOLOGICAL Hx Human Immunodeficiency Virus (HIV): No - INTEGUMENTARY Hx Dermatological Problems: Yes Hx Psoriasis: Yes - MUSCULOSKELETAL/RHEUMATOLOGICAL Hx Arthritis: Yes (psoriatic) - GASTROINTESTINAL Hx Gastrointestinal Disorders: No - GENITOURINARY/GYNECOLOGICAL Hx Sexually Transmitted Disorders: No - PSYCHIATRIC Hx Anxiety: Yes Hx Bipolar Disorder: Yes Hx Depression: Yes Hx Paranoia: Yes Hx Post Traumatic Stress Disorder: Yes Hx Schizophrenia: Yes Hx Substance Use: Yes (13 years sober) - SURGICAL HISTORY Hx Surgeries: No - ANESTHESIA Hx Anesthesia: No Hx Anesthesia Reactions: No Hx Malignant Hyperthermia: No Meds Allergies/Adverse Reactions: Allergies Allergy/AdvReac Type Severity Reaction Status Date / Time strawberry Allergy Severe ANAPHYLAXIS Verified 11/03/18 11:03 metoclopramide HCl Allergy SWELLING Verified 11/03/18 11:03 [From Reglan] phenytoin [From Dilantin] Allergy RASH Verified 11/03/18 11:03 lamotrigine [From Lamictal] AdvReac Severe SWELLING Verified 11/03/18 11:03 tomato AdvReac Severe ANAPHYLAXIS Verified 11/03/18 11:03 buprenorphine HCl AdvReac Mild RASH Verified 11/03/18 11:03 [From Suboxone] divalproex sodium AdvReac Mild RASH Verified 11/03/18 11:03 [From Depakote] naloxone AdvReac Mild RASH Verified 11/03/18 11:03 naloxone HCl [From Suboxone] AdvReac Mild RASH Verified 11/03/18 11:03 sumatriptan [From Imitrex] AdvReac Mild RASH Verified 11/03/18 11:03 sumatriptan succinate AdvReac Mild RASH Verified 11/03/18 11:03 [From Imitrex] Results - Vital Signs Recent Vital Signs: Last Vital Signs Temp 97.9 F 11/04/18 15:06 Pulse 79 11/04/18 15:06 Resp 20 11/04/18 15:06 BP 120/78 11/04/18 15:06 Pulse Ox 98 11/04/18 15:06 - Labs Result Diagrams: 11/03/18 12:13 11/03/18 13:02 Labs: Laboratory Results - last 24 hr 11/04/18 01:18 Urine Color Mary Urine Clarity Hazy Urine pH 6.0 Ur Specific [place] 1.018 Urine Protein Negative Urine Glucose (UA) Normal Urine Ketones Negative Urine Blood Negative Urine Nitrate Negative Urine Bilirubin Negative Urine Urobilinogen Normal Ur Leukocyte Esterase Neg Urine WBC (Auto) 1 Ur Squamous Epith Cells < 1
--- NOTE | 2018-11-05 04:26 | HP ---
CHIEF COMPLAINT: Back pain and neck pain. HISTORY OF PRESENT ILLNESS: This is a 43-year-old [place] male, well known to me, with history of seizure disorder, psoriatic arthritis, schizophrenia, depression and anxiety, recovering opiate addiction who is compliant with his diet, medication and followup. The patient complained of lower back pain, and the pain is radiating to bilateral lower extremities for the last two days. The patient is having difficulty walking. The patient has been for his psoriatic arthritis. The patient has been on Cosentyx every two weeks injection. The patient denied any fever, chills or rigors. He denies any cough, sore throat, or runny nose. The pain is worse with movement. The pain is in the lumbar area, radiating to the both legs. He has been seeing urologist although he has not seen immediately. The patient also had generalized pruritus and itching. The patient had been taking ibuprofen at home without any relief. In the past, he had a history of opioid dependence. The patient has not been tolerating and is not responding to Tylenol. He is admitted for pain control. The patient denies any fever or chills. No cough. No sore throat. No nausea, vomiting or diarrhea. No history of polyuria, polydipsia or polyphagia. No history of fever, chills or rigors. There is no history of tingling or numbness. PAST MEDICAL HISTORY: Psoriatic arthritis, depression, seizure disorder, anxiety, schizophrenia. CURRENT MEDICATIONS: Cosentyx, Atarax, ibuprofen, Klonopin, Neurontin, chlorpromazine, Topamax. FAMILY HISTORY: Positive for diabetes and CKD in mother and diabetes, hypertension and hypothyroidism in the father. PHYSICAL EXAMINATION: GENERAL: Middle-aged young male, in minimal distress. VITAL SIGNS: Blood pressure 120/78, pulse 79, respiratory rate 20 and temperature 97.9. SKIN: The patient has some chronic changes. HEENT: Atraumatic and normocephalic. Negative pallor. Negative jaundice. Extraocular movements are intact. NECK: Supple. No JVD. No lymph nodes. No thyromegaly. No carotid bruits. CHEST WALL: Bilateral symmetrical expansion. No tenderness. No deformity. LUNGS: Bilaterally clear. No rales. No rhonchi. CARDIOVASCULAR SYSTEM: S1 and S2 are regular. No heave or thrill. ABDOMEN: Soft. Nontender. Bowel sounds are positive. RECTAL: Deferred. PELVIC: Deferred. EXTREMITIES: No clubbing, cyanosis or edema. CENTRAL NERVOUS SYSTEM: Awake, alert and oriented x3. LUMBOSACRAL SPINE: The patient has spasm of paraspinal muscles and decreased range of movement. ASSESSMENT: 1. Lumbar disk disease, rule out herniated disk disease. 2. Psoriatic arthritis. 3. Depression. PLAN: Continue current medications. Monitor the patient. Yony Chua MD
[2018-11-05] MEDS: hydrOXYzine HCl 25 mg/ml Inj IM PRN (05:41)
[2018-11-05 07:56] VITALS: BP 128/81; PULSE 74; TEMP 97.8; O2SAT 96
[2018-11-05] MEDS ORDERED: Pneumococcal 23-Valent Vaccine IM ONE (10:00)
[2018-11-05] MEDS ORDERED: Influenza Vaccine 60 mcg/0.5 mL SYR (4YR UP) IM ONE (10:00)
--- NOTE | 2018-11-05 16:12 | CP.PCM.PN ---
Subjective - Date & Time of Evaluation Date of Evaluation: 11/05/18 Time of Evaluation: 11:00 - Subjective Subjective: alert, awake, ambulatory, no acute pain. Objective - Vital Signs/Intake and Output Vital Signs (last 24 hours): Temp Pulse Resp BP Pulse Ox 97.8 F 74 20 128/81 96 11/05/18 07:53 11/05/18 07:53 11/05/18 07:53 11/05/18 07:53 11/05/18 11:17 Intake and Output: 11/05/18 11/05/18 06:59 18:59 Intake Total 360 Balance 360 - Labs Labs: 11/03/18 12:13 11/03/18 13:02 PT 11.7 SECONDS (9.7-12.2) 11/03/18 12:13 INR 1.1 11/03/18 12:13 APTT 36 SECONDS (21-34) H 11/03/18 12:13 Assessment and Plan - Assessment and Plan (Free Text) Assessment: 43 year old male with bipolar disease and psoriatic arthritis, seen and examined. Alert and orientedx3, denies acute pain, able to ambulate. Discussed with DR Chua, plan to discharge home today. Advised to follow up with PMD and psyche in 1 week.
--- NOTE | 2018-11-05 20:54 | CP.PCM.DIS ---
Provider - Provider Date of Admission: 11/03/18 11:58 Attending physician: Yony Chua MD Consults: 11/03/18 15:10 Physician Consult Routine Comment: Consulting Provider: Tom Aaron Consulting Physician: Tom Aaron Reason for Consult: psoriatic arthritis/ unable to walk 11/03/18 15:11 Physician Consult Routine Comment: Consulting Provider: Holden Green Consulting Physician: Holden Green Reason for Consult: depression Time Spent in preparation of Discharge (in minutes): 30 Hospital Course - Lab Results Lab Results: Most Recent Lab Values WBC 7.5 K/uL (4.8-10.8) 11/03/18 12:13 RBC 5.23 Mil/uL (4.40-5.90) 11/03/18 12:13 Hgb 16.2 g/dL (12.0-18.0) 11/03/18 12:13 Hct 47.5 % (35.0-51.0) 11/03/18 12:13 MCV 90.9 fL (80.0-94.0) D 11/03/18 12:13 MCH 31.1 pg (27.0-31.0) H 11/03/18 12:13 MCHC 34.2 g/dL (33.0-37.0) 11/03/18 12:13 RDW 13.9 % (11.5-14.5) 11/03/18 12:13 Plt Count 191 K/uL (130-400) 11/03/18 12:13 MPV 9.6 fL (7.2-11.7) 11/03/18 12:13 Neut % (Auto) 49.1 % (50.0-75.0) L 11/03/18 12:13 Lymph % (Auto) 41.4 % (20.0-40.0) H 11/03/18 12:13 [place] % (Auto) 6.3 % (0.0-10.0) 11/03/18 12:13 Eos % (Auto) 2.5 % (0.0-4.0) 11/03/18 12:13 Baso % (Auto) 0.7 % (0.0-2.0) 11/03/18 12:13 Neut # (Auto) 3.7 K/uL (1.8-7.0) 11/03/18 12:13 Lymph # (Auto) 3.1 K/uL (1.0-4.3) 11/03/18 12:13 [place] # (Auto) 0.5 K/uL (0.0-0.8) 11/03/18 12:13 Eos # (Auto) 0.2 K/uL (0.0-0.7) 11/03/18 12:13 Baso # (Auto) 0.1 K/uL (0.0-0.2) 11/03/18 12:13 PT 11.7 SECONDS (9.7-12.2) 11/03/18 12:13 INR 1.1 11/03/18 12:13 APTT 36 SECONDS (21-34) H 11/03/18 12:13 Sodium 139 mmol/L (132-148) 11/03/18 13:02 Potassium 3.6 mmol/L (3.6-5.2) 11/03/18 13:02 Chloride 107 mmol/L (98-107) 11/03/18 13:02 Carbon Dioxide 24 mmol/L (22-30) 11/03/18 13:02 Anion Gap 12 (10-20) 11/03/18 13:02 BUN 14 mg/dL (9-20) 11/03/18 13:02 Creatinine 1.1 mg/dL (0.8-1.5) 11/03/18 13:02 Est GFR ( Amer) > 60 11/03/18 13:02 Est GFR (Non-Af Amer) > 60 11/03/18 13:02 Random Glucose 108 mg/dL (75-110) 11/03/18 13:02 Calcium 9.0 mg/dl (8.6-10.4) 11/03/18 13:02 Total Bilirubin 0.8 mg/dL (0.2-1.3) 11/03/18 13:02 AST 28 U/L (17-59) 11/03/18 13:02 ALT 46 U/L (21-72) 11/03/18 13:02 Alkaline Phosphatase 63 U/L (38-126) 11/03/18 13:02 Total Protein 7.6 g/dL (6.3-8.3) 11/03/18 13:02 Albumin 4.3 g/dL (3.5-5.0) 11/03/18 13:02 Globulin 3.3 gm/dL (2.2-3.9) 11/03/18 13:02 Albumin/Globulin Ratio 1.3 (1.0-2.1) 11/03/18 13:02 Urine Color Mary (YELLOW) 11/04/18 01:18 Urine Clarity Hazy (Clear) 11/04/18 01:18 Urine pH 6.0 (5.0-8.0) 11/04/18 01:18 Ur Specific [place] 1.018 (1.003-1.030) 11/04/18 01:18 Urine Protein Negative mg/dL (NEGATIVE) 11/04/18 01:18 Urine Glucose (UA) Normal mg/dL (Normal) 11/04/18 01:18 Urine Ketones Negative mg/dL (NEGATIVE) 11/04/18 01:18 Urine Blood Negative (NEGATIVE) 11/04/18 01:18 Urine Nitrate Negative (NEGATIVE) 11/04/18 01:18 Urine Bilirubin Negative (NEGATIVE) 11/04/18 01:18 Urine Urobilinogen Normal mg/dL (0.2-1.0) 11/04/18 01:18 Ur Leukocyte Esterase Neg [place]/uL (Negative) 11/04/18 01:18 Urine WBC (Auto) 1 /hpf (0-5) 11/04/18 01:18 Ur Squamous Epith Cells < 1 /hpf (0-5) 11/04/18 01:18 Discharge Plan - Discharge Medications Prescriptions: chlorproMAZINE [chlorPROMAZINE HCL] 25 mg PO HS 30 Days tab - Follow Up Plan Condition: STABLE Disposition: HOME/ ROUTINE Instructions: Chronic Pain (DC), Psoriatic Arthritis in Adults Additional Instructions: follow up with neuro in the office in 2 weeks continue with present medications at home follow up with PMD in 1 week
--- NOTE | 2018-11-06 19:29 | DS ---
DISCHARGE DIAGNOSES: Lumbar disk disease, psoriatic arthritis, anxiety, depression, and history of opiate addiction. HISTORY OF PRESENT ILLNESS: This is a 43-year-old Israeli male with history of opiate addiction, depression, psychosis, schizophrenia. He has psoriatic arthritis and psoriasis and he is on multiple medications. He is on injectable biological agent. The patient developed acute lower back pain radiating to the legs bilaterally, worse with bending, lifting, and pain became intractable, non-controllable, and he was hospitalized. He was admitted to the floor, started on pain medication including gabapentin, underwent MRI of the lumbosacral spine, which essentially showed mostly osteoarthritis of lumbar spine with no real herniation. The patient was treated with gabapentin. He responded well. He is being discharged with outpatient followup. PHYSICAL EXAMINATION: VITAL SIGNS: Blood pressure 128/81, pulse 74, respiratory rate 20, temperature 97.8. LABORATORY DATA: WBC 7.5, hemoglobin 16.2, hematocrit 47.5, platelets 491. PT , PTT 26. Sodium 139, potassium 3.8, chloride 110, bicarb 24, BUN 14, creatinine 1.1. LFTs are normal. Urinalysis normal. CONDITION UPON DISCHARGE: Stable. The patient will be followed up as outpatient. Yony Chua MD
== END 2018-11-05 14:31 | disposition home or self-care (01) ==
LOC: C.ER 10:51 → C.9E 11:58 → C.3T 12:50
PROVIDERS: ADMIT Internal Medicine; ATTEND Internal Medicine
DX: M54.5 Low back pain (principal); L40.50 Arthropathic psoriasis, unspecified; G40.909 Epilepsy, unspecified, not intractable, without status epilepticus; G89.4 Chronic pain syndrome; L29.9 Pruritus, unspecified; F60.9 Personality disorder, unspecified; M47.816 Spondylosis without myelopathy or radiculopathy, lumbar region; M48.061 Spinal stenosis, lumbar region without neurogenic claudication; G62.9 Polyneuropathy, unspecified; F43.10 Post-traumatic stress disorder, unspecified; F31.60 Bipolar disorder, current episode mixed, unspecified; M51.9 Unspecified thoracic, thoracolumbar and lumbosacral intervertebral disc disorder; Z79.899 Other long term (current) drug therapy; Z83.3 Family history of diabetes mellitus
CPT/HCPCS: 36415; 72158; 80053; 81001; 85025; 85610; 85730; 96374; 97116; 97161; 97166; 97530; 99284; A9579; G0378; G8978; G8979; G8987; G8988; J1170; J1200; J1644; J3410

== ENCOUNTER 2019-01-10 15:32 | Emergency (ER) | payer MEDICARE, MEDICAID ==
[2019-01-10 15:32] VITALS: BMI 29.2
--- NOTE | 2019-01-10 17:10 | C.PDOC ---
History Of Present Illness 43 y/o male presents to the ER complaining of fatigue and itchy skin which has been present for the past 1 month. Patient states that he took Cosentyx for psoriasis from October 2017 to October 2018. Patient reports that he started t aking Cosentyx again in December 2018. He notes that he began having fatigue and itchy skin after he began taking the medication again. He states that he is also taking Adderall for ADHD since November 2018. Denies having fever, chills, nausea, vomiting, and abdominal pain. Time Seen by Provider: 01/10/19 16:26 Chief Complaint (Nursing): Weakness/Neurological Deficit History Per: Patient History/Exam Limitations: no limitations Onset/Duration Of Symptoms: Days Current Symptoms Are (Timing): Still Present Severity: Moderate Past Medical History Reviewed: Historical Data, Nursing Documentation, Vital Signs Vital Signs: Last Vital Signs Temp 97.9 F 01/10/19 15:37 Pulse 99 H 01/10/19 15:37 Resp 18 01/10/19 15:37 BP 133/86 01/10/19 15:37 Pulse Ox 99 01/10/19 16:38 - Medical History PMH: Anxiety, Arthritis (psoriatic), Bipolar Disorder, Depression, Migraine, Pa ranoia, Personality Disorder, Post Traumatic Stress Disorder, Schizophrenia, Seizures Denies: Diabetes, Hepatitis, HIV, HTN, Chronic Kidney Disease, Sexually Transmitted Disease Surgical History: No Surg Hx - [facility] Procedures PSYCHIAT DRUG THERAP NEC (05/17/13) Family History: States: No Known Family Hx - Social History Hx Tobacco Use: No Hx Alcohol Use: No Hx Substance Use: Yes (13 years sober) - Immunization History Hx Tetanus Toxoid Vaccination: No Hx Influenza Vaccination: No Hx Pneumococcal Vaccination: No Review Of Systems Except As Marked, All Systems Reviewed And Found Negative. Constitutional: Positive for: Other (fatigue). Negative for: Fever, Chills Gastrointestinal: Negative for: Nausea, Vomiting, Abdominal Pain Skin: Positive for: Other (itchy skin) Physical Exam - Physical Exam Appears: No Acute Distress, Other (awake,alert, no signs of fatigue) Skin: Warm, Dry, Other (mild [place] plaque psorasis to neck, chest, and bilateral arms, no skin pruritus) Head: Atraumatic, Normacephalic Eye(s): bilateral: Normal Inspection Nose: Normal Oral Mucosa: Moist Neck: Supple Chest: Symmetrical Cardiovascular: Rhythm Regular Respiratory: Normal Breath Sounds, No Rales, No Rhonchi, No Wheezing Gastrointestinal/Abdominal: Normal Exam, Soft, No Tenderness, No Guarding, No Hernia Neurological/Psych: Oriented x3, Normal Speech ED Course And Treatment - Laboratory Results Result Diagrams: 01/10/19 17:24 01/10/19 17:24 Lab Interpretation: Normal (tox + amphetamines c/w Adderal, cpk 96, trop neg.) ECG: Interpreted By Me ECG Rhythm: Sinus Rhythm O2 Sat by Pulse Oximetry: 99 (RA) Pulse Ox Interpretation: Normal Reevaluation Time: 18:17 Reassessment Condition: Unchanged Medical Decision Making Medical Decision Making: Plan: --Labs --UA chronic fatigue/anxiety/lethargy more likely related to chronic extensive psych issues and not new meds (Adderal/Consyntex) opt f/u Disposition Doctor Will See Patient In The: Office Counseled Patient/Family Regarding: Studies Performed, Diagnosis - Disposition Disposition: HOME/ ROUTINE Disposition Time: 18:18 Condition: GOOD Forms: [email or web address] (Estonian) - Clinical Impression Clinical Impression: Lethargy - Scribe Statement The provider has reviewed the documentation as recorded by the Marielaibe Jarrod Jha Provider Attestation: All medical record entries made by the Scribe were at my direction and personally dictated by me. I have reviewed the chart and agree that the record accurately reflects my personal performance of the history, physical exam, medical decision making, and the department course for this patient. I have also personally directed, reviewed, and agree with the discharge instructions and disposition.
[2019-01-10 17:29] LABS: BASO % 0.5 % (0.0-2.0); EOS # 0.1 K/uL (0.0-0.7); EOS % 1.8 % (0.0-4.0); HEMOGLOBIN 18.4 g/dL (12.0-18.0); LYMPH # 2.3 K/uL (1.0-4.3); LYMPH % 31.3 % (20.0-40.0); MEAN CELL VOLUME 91.5 fL (80.0-94.0); MEAN CORPUSCULAR HEMOGLOBIN 30.3 pg (27.0-31.0); MEAN CORPUSCULAR HGB CONC 33.1 g/dL (33.0-37.0); MEAN PLATELET VOLUME 10.2 fL (7.2-11.7); MONO # 0.4 K/uL (0.0-0.8); NEUT # 4.4 K/uL (1.8-7.0); NEUT % 61.4 % (50.0-75.0); NRBC % 0.1 % (0.0-2.0); RBC 6.07 Mil/uL (4.40-5.90); RED CELL DISTRIBUTION WIDTH 13.5 % (11.5-14.5); WHITE BLOOD COUNT 7.2 K/uL (4.8-10.8)
[2019-01-10 17:36] LABS: SQUAMOUS EPITHIAL < 1 /hpf (0-5); URINE BACTERIA RARE (<OCC); URINE BILIRUBIN NEGATIVE (NEGATIVE); URINE BLOOD NEGATIVE (NEGATIVE); URINE COLOR Yellow (YELLOW); URINE GLUCOSE (UA) NORMAL (Normal); URINE LEUKOCYTE ESTERASE NEG Leu/uL (Negative); URINE PROTEIN NEGATIVE (NEGATIVE); URINE UROBILINOGEN NORMAL mg/dL (0.2-1.0)
[2019-01-10 17:47] LABS: BARBITURATES, UR NEGATIVE (NEGATIVE); BENZODIAZEPINES, UR NEGATIVE (NEGATIVE); OPIATES, UR NEGATIVE (NEGATIVE); PHENCYCLIDINE, UR NEGATIVE (NEGATIVE); URINE CLARITY Clear (Clear)
[2019-01-10 17:50] LABS: ALB/GLOB RATIO 1.4 (1.0-2.1); ALT/SGPT 50 U/L (21-72); AST/SGOT 34 U/L (17-59); BLOOD UREA NITROGEN 13 mg/dL (9-20); CALCIUM 10.5 mg/dl (8.6-10.4); GFR NON-AFRICAN AMERICAN > 60
[2019-01-10 18:33] VITALS: BP 128/86; PULSE 93; RESP 20; TEMP 97.4; O2SAT 96
== END 2019-01-10 18:51 | disposition home or self-care (01) ==
LOC: C.ER 15:32
DX: R53.83 Other fatigue (principal); F31.9 Bipolar disorder, unspecified; F43.10 Post-traumatic stress disorder, unspecified
CPT/HCPCS: 80053; 81001; 82550; 84484; 85025; 99285; G0480